=== PATIENT | male | born 1955 | race Caucasian/White ===

== ENCOUNTER → 2019-07-31 06:33 | Day surgery (SDC) | payer MEDICARE, OTHER ==
[~2019-07-31] VITALS: Ht 180.3 cm; Wt 98.0 kg
[~2019-07-31 06:33] MED LIST: ANDROGEL5 GM TP; LUNESTA2 M1 PO
[2019-07-31 07:17] LABS: INR 1.11 (0.85-1.17); PROTIME 14.3 SECONDS (11.6-15.0)
[2019-07-31 07:22] LABS: ANION GAP 15.2 mmol/L (8-16); CALCIUM 8.8 mg/dL (8.5-10.1); CARBON DIOXIDE 21.1 mmol/L (21.0-32.0); CREATININE - SERUM 3.6 mg/dL (0.6-1.3); POTASSIUM - SERUM 3.3 mmol/L (3.5-5.1)
[2019-07-31 07:32] LABS: BASOPHILS 0.3 % (0-2); EOSINOPHILS 1.3 % (0-7); HEMATOCRIT 36.9 % (42.0-54.0); HEMOGLOBIN 12.4 g/dL (13.5-17.5); IMMATURE GRANULOCYTES 0.1 % (0-5); LYMPHOCYTES 25.8 % (15-50); MCH 32.7 pg (26.0-34.0); MCHC 33.6 g/dL (31.0-37.0); MCV 97.4 fL (80.0-100.0); MEAN PLATELET VOLUME 10.2 fL (7.4-10.4); MONOCYTES 6.5 % (2-11); PLATELET COUNT 152 10x3/uL (130-400); RBC 3.79 10x6/uL (4.20-6.10); WBC 6.8 10x3/uL (4.8-10.8)
[2019-07-31 08:04] VITALS: BP 118/72; Ht 180.3 cm; Wt 98.0 kg
--- NOTE | 2019-07-31 08:32 | NUR ---
[address] LEON. IV D/C'D. PT INSTRUCTED TO CALL DRS OFFICE TO RESCHEDULE
== END | disposition home or self-care (01) ==
LOC: D.OPS 06:33
PROVIDERS: Surgery; ATTEND Internal Medicine
DX: N18.4 Chronic kidney disease, stage 4 (severe) (principal); Z53.9 Procedure and treatment not carried out, unspecified reason

== ENCOUNTER 2019-08-11 05:41 | Day surgery (SDC) | payer MEDICARE, OTHER ==
[~2019-08-11] VITALS: Ht 180.3 cm; Wt 97.5 kg
--- NOTE | ~2019-08-11 | OP ---
PATIENT NAME: RAULITO FLOR MEDICAL RECORD: [id number] :53 LOCATION:D[facility] ADMISSION DATE: SURGEON: STARR LEON MD DATE OF OPERATION: 08/11/2019 REFERRED BY: Tayler Beckford DO PREOPERATIVE DIAGNOSIS: Chronic kidney disease with no longer requiring dialysis. POSTOPERATIVE DIAGNOSIS: Chronic kidney disease with no longer requiring dialysis. OPERATION PERFORMED: Removal of peritoneal dialysis catheter. SURGEON: Starr Leon MD ANESTHESIA: General with LMA per LOGISTICS SOLUTION MANAGER. PREOPERATIVE NOTE: This 64-year-old white male patient from [place] is here today to have his peritoneal catheter removed. DESCRIPTION OF PROCEDURE: Under anesthesia in supine position, the patient was prepped and draped in sterile manner. I made three incisions, one over the superficial cuff in the left upper quadrant, one over the connector in the left upper quadrant near the midline and one in the left lower quadrant just below the umbilicus. The catheter and the Dacron felt cuffs and the connectors were all exposed and dissected from the surrounding tissues and the catheter removed without difficulty. The fascial defect was closed with 2 [id number] 0 Vicryl sutures. The wounds were all irrigated with Ancef/gentamicin solution and infiltrated with 0.25% Marcaine with epinephrine and closed with interrupted intracuticular 3-0 Vicryl sutures and Dermabond glue. They were dressed with Maxorb Ag, Tegaderm, and Cavilon skin prep. The patient was awakened and taken to the recovery room. Blood loss during the operation was zero. Sponges, instruments and needles were accounted for. No drain was used and no surgical specimen submitted for histopathology. The catheter was discarded. The patient will be discharged to home and return to see me in my office next week for wound check. He is given a prescription for tramadol 50 mg one p.o. every 4 hours p.r.n. pain, a total of 10. TRANSINT:[id number] Voice Confirmation ID: [id number] DOCUMENT ID: [id number] STARR LEON MD CC: [id number] DICTATION DATE: 08/11/19929 FOOD SERVER: 08/11/19 1559 [facility] 08/11/19 [facility] [address] [place] [address]
[2019-08-11 06:08] LABS: BASOPHILS 0.2 % (0-2); EOSINOPHILS 1.8 % (0-7); HEMATOCRIT 38.7 % (42.0-54.0); HEMOGLOBIN 12.6 g/dL (13.5-17.5); IMMATURE GRANULOCYTES 0.2 % (0-5); LYMPHOCYTES 28.3 % (15-50); MCH 32.2 pg (26.0-34.0); MCHC 32.6 g/dL (31.0-37.0); MEAN PLATELET VOLUME 10.3 fL (7.4-10.4); MONOCYTES 7.3 % (2-11); NEUTROPHILS 62.2 % (40-80); PLATELET COUNT 152 10x3/uL (130-400); RBC 3.91 10x6/uL (4.20-6.10); WBC 6.1 10x3/uL (4.8-10.8)
[2019-08-11 06:14] LABS: ANION GAP 13.1 mmol/L (8-16); CALCIUM 8.6 mg/dL (8.5-10.1); CARBON DIOXIDE 23.4 mmol/L (21.0-32.0); CREATININE - SERUM 3.6 mg/dL (0.6-1.3); POTASSIUM - SERUM 3.5 mmol/L (3.5-5.1)
[2019-08-11 06:23] LABS: INR 1.04 (0.85-1.17); PROTIME 13.5 SECONDS (11.6-15.0)
[2019-08-11 06:48] VITALS: BP 123/69; Ht 180.3 cm; Wt 97.5 kg
[2019-08-11] MEDS ORDERED: VITAMIN D1000 UNIT PO (06:48)
--- NOTE | 2019-08-11 08:50 | NUR ---
PD CATHETER WAS DISPOSED OF PER DR LEON REQUEST
[2019-08-11] MEDS ORDERED: ULTRAM50 MG PO (09:23)
== END 2019-08-11 10:40 | disposition home or self-care (01) ==
LOC: D.OPS 05:41
PROVIDERS: Surgery; ATTEND Internal Medicine
DX: N18.4 Chronic kidney disease, stage 4 (severe) (principal)